=== PATIENT | male | born 1970 | race African-American/Black ===

== ENCOUNTER 2019-12-23 10:25 | Emergency (ER) | payer OTHER ==
[~2019-12-23] VITALS: Ht 185.4 cm; Wt 100.0 kg
[2019-12-23 10:35] VITALS: BP 156/119
[2019-12-23] MEDS ORDERED: INSLAN SQ (10:43)
[2019-12-23 10:52] LABS: GLUCOSE,POINT OF CARE 396 MG/DL (70-110)
== END 2019-12-23 11:17 | disposition left against medical advice (07) ==
LOC: EMS 10:26
DX: F25.9 Schizoaffective disorder, unspecified (principal); E11.9 Type 2 diabetes mellitus without complications; G89.29 Other chronic pain; M25.522 Pain in left elbow; F12.90 Cannabis use, unspecified, uncomplicated; Z79.4 Long term (current) use of insulin